=== PATIENT | female | born 1995 | race African-American/Black ===

== ENCOUNTER 2018-06-23 20:22 | Emergency (ER) | payer BC ==
[~2018-06-23] VITALS: Ht 160 cm; Wt 53.1 kg
[2018-06-23 20:41] VITALS: BP 146/96; Ht 160 cm; Wt 53.1 kg
== END 2018-06-23 22:00 | disposition home or self-care (01) ==
LOC: ED 20:22
DX: S61.305A Unspecified open wound of left ring finger with damage to nail, initial encounter (principal); X58.XXXA Exposure to other specified factors, initial encounter; Y93.89 Activity, other specified; Y92.89 Other specified places as the place of occurrence of the external cause; Y99.8 Other external cause status
CPT/HCPCS: 90715; A4570; J1885